=== PATIENT | female | born 2000 | race Caucasian/White ===

== ENCOUNTER 2021-02-20 15:33 | Emergency (ER) | payer OTHER ==
[2021-02-20 16:10] LABS: HEMOGLOBIN 14.5 gm/dl (12.3-15.3); RED BLOOD COUNT 4.86 M/UL (4.00-5.10); WHITE BLOOD COUNT 9.8 K/UL (4.5-11.0)
[2021-02-20 16:37] LABS: BUN/CREATININE RATIO 17 (0-10)
[2021-02-21] MEDS ORDERED: ASPIRIN81 MG PO (07:07)
== END 2021-02-20 17:07 | disposition home or self-care (01) ==
LOC: ER1 15:33
PROVIDERS: Physician Assistant
DX: R07.9 Chest pain, unspecified (principal); E03.9 Hypothyroidism, unspecified; Z79.899 Other long term (current) drug therapy
CPT/HCPCS: 71045; 80048; 82550; 82553; 83874; 84439; 84443; 84484; 85025; 93005; 99285

== ENCOUNTER 2021-02-21 04:08 | Emergency (ER) | payer OTHER ==
[2021-02-21 05:34] LABS: HEMOGLOBIN 14.1 gm/dl (12.3-15.3); RED BLOOD COUNT 4.72 M/UL (4.00-5.10)
[2021-02-21 05:49] LABS: BUN/CREATININE RATIO 17 (0-10)
[2021-02-21] MEDS ORDERED: ASPIRIN81 MG PO (07:07)
== END 2021-02-21 07:26 | disposition home or self-care (01) ==
LOC: ER1 04:08
PROVIDERS: Family Medicine
DX: R07.9 Chest pain, unspecified (principal)
CPT/HCPCS: 71046; 80053; 82550; 82553; 83874; 84484; 85025; 93005; 99285

== ENCOUNTER → 2021-07-28 | Outpatient (CLI) | payer OTHER ==
[~2021-07-28] MED LIST: ASPIRIN81 MG PO
== END ==
LOC: KOH-I 10:34
DX: M06.9 Rheumatoid arthritis, unspecified (principal)
CPT/HCPCS: 73130

== ENCOUNTER 2021-12-17 11:01 | Emergency (ER) | payer OTHER ==
[2021-12-17 12:20] LABS: HEMOGLOBIN 14.5 gm/dl (12.3-15.3); RED BLOOD COUNT 4.93 M/UL (4.00-5.10); WHITE BLOOD COUNT 11.4 K/UL (4.5-11.0)
[2021-12-17 12:43] LABS: BUN/CREATININE RATIO 12 (0-10)
[2021-12-17] MEDS ORDERED: CEPHALEXIN500 M1 PO (14:48)
[2021-12-17] MEDS ORDERED: IBUPROFEN800 MG PO (14:48)
[2021-12-17] MEDS ORDERED: BUSPIRONE HCL5 MG PO (14:48)
== END 2021-12-17 15:00 | disposition home or self-care (01) ==
LOC: ER1 11:01
PROVIDERS: Physician Assistant
DX: R51.9 Headache, unspecified (principal); F41.9 Anxiety disorder, unspecified; G47.00 Insomnia, unspecified; R63.5 Abnormal weight gain; L65.9 Nonscarring hair loss, unspecified; N39.0 Urinary tract infection, site not specified; E11.9 Type 2 diabetes mellitus without complications; Z79.899 Other long term (current) drug therapy
CPT/HCPCS: 70450; 80053; 81001; 84439; 84443; 84703; 85025; 99284; Q0177

== ENCOUNTER 2021-12-20 21:40 | Emergency (ER) | payer OTHER ==
[~2021-12-20 21:40] MED LIST changes: +BUSPIRONE HCL5 MG PO; +CEPHALEXIN500 M1 PO; +IBUPROFEN800 MG PO
[2021-12-20] MEDS ORDERED: BACTRIM DS TAB1 EACH PO (22:12)
[2021-12-20] MEDS ORDERED: ZOFRAN ODT 4 MG4 MG PO (22:12)
== END 2021-12-20 22:20 | disposition home or self-care (01) ==
LOC: ER1 21:40
DX: N39.0 Urinary tract infection, site not specified (principal); R11.0 Nausea
CPT/HCPCS: 99283